=== PATIENT | female | born 1945 | race Two or more races ===

== ENCOUNTER 2019-04-26 04:17 | Emergency (ER) | payer MEDICARE ==
[~2019-04-26] VITALS: Ht 165.1 cm; Wt 81.4 kg
[~2019-04-26 04:17] MED LIST: ASPI-611 PO; DOCU-28 PO; HYDR-4383 PO; LISI10TA4 PO
[2019-04-26] MEDS ORDERED: ipratropium/albuterol 3ml nebule NEB ONE (04:20)
[2019-04-26] MEDS ORDERED: normal saline 1000ML IV soln IVB ONE (04:25)
[2019-04-26] MEDS ORDERED: LIDOcaine Viscous 15ml cup MM PRN (04:25)
[2019-04-26] MEDS ORDERED: HYDROcodone/acetaminophen 5mg/325mg tablet PO ONE (04:25)
[2019-04-26] MEDS ORDERED: methylPREDNISolone sod succ 125mg/2ml vial IV ONE (04:25)
[2019-04-26] MEDS ORDERED: LORazepam 0.5 MG tablet PO PRN (04:55)
[2019-04-26] MEDS ORDERED: PRED50TA PO (05:09)
[2019-04-26] MEDS ORDERED: morphine 4 MG/ML inj SYRINge IM ONE (05:40)
[2019-04-26 05:54] VITALS: BP 143/73
[2019-04-26 07:04] LABS: BASOPHILS # (AUTO) 0.1 X10'3 (0-0.2); EOSINOPHILS % (AUTO) 0.5 % (0-6); HEMATOCRIT 40.3 % (35.0-45.0); HEMOGLOBIN 13.9 g/dl (12.0-16.0); LYMPHOCYTES # (AUTO) 0.8 X10'3 (1.1-4.8); MEAN CORPUSCULAR HEMOGLOBIN 30.9 PG (27.0-31.0); MEAN CORPUSCULAR HGB CONC 34.5 g/dL (33.0-36.5); MEAN CORPUSCULAR VOLUME 89.7 FL (78-98); MEAN PLATELET VOLUME 8.5 FL (7.4-10.4); MONOCYTES # (AUTO) 0.3 X10'3 (0-0.9); MONOCYTES % (AUTO) 4.5 % (2-12); NEUTROPHILS # (AUTO) 6.4 X10'3 (1.8-7.7); PLATELET COUNT 173 X10'3 (140-440); RED BLOOD COUNT 4.49 X10'6 (4.20-5.60); RED CELL DISTRIBUTION WIDTH 13.6 % (11.5-14.5); WHITE BLOOD COUNT 7.6 X10'3 (4.5-11.0)
[2019-04-26 07:23] LABS: ALANINE AMINOTRANSFERASE 20 U/L (12-78); ALBUMIN 3.5 G/DL (3.4-5.0); ALKALINE PHOSPHATASE 298 IU/L (46-116); ANION GAP 10 (8-16); ASPARTATE AMINO TRANSFERASE 16 U/L (10-37); BILIRUBIN,TOTAL 0.3 MG/DL (0.1-1.0); BLOOD UREA NITROGEN 24 MG/DL (7-18); BUN/CREATININE RATIO 25.3 (6.6-38.0); CALCIUM 8.8 MG/DL (8.5-10.1); CHLORIDE 105 MMOL/L (99-107); CREATININE 0.95 MG/DL (0.40-0.90); GLUCOSE 178 MG/DL (70-104); POTASSIUM 3.5 MMOL/L (3.5-5.1); SODIUM 139 MMOL/L (135-145); TOTAL CARBON DIOXIDE 24.1 MMOL/L (24-32); TOTAL PROTEIN 6.9 G/DL (6.4-8.2); eGFR 58 ML/MIN
[2019-04-26] MEDS ORDERED: iohexol 300mg/ml 100ml inj. ONE (07:27)
[2019-04-26] MEDS ORDERED: morphine 4 MG/ML inj SYRINge IV ONE (08:05)
[2019-04-26] MEDS ORDERED: ACET-3068 PO (09:03)
== END 2019-04-26 09:33 | disposition home or self-care (01) ==
LOC: ER 04:18
DX: J02.9 Acute pharyngitis, unspecified (principal); R06.02 Shortness of breath; J45.909 Unspecified asthma, uncomplicated; Z79.82 Long term (current) use of aspirin; Z88.8 Allergy status to other drugs, medicaments and biological substances; Z79.899 Other long term (current) drug therapy; Z90.710 Acquired absence of both cervix and uterus; Z90.49 Acquired absence of other specified parts of digestive tract; Z98.890 Other specified postprocedural states
CPT/HCPCS: 36415; 70491; 80053; 85025; 87081; 87880; 93005; 94640; 94760; 96374; 96375; 96376; 99284; J2270; J2930; J7030; Q9967

== ENCOUNTER 2019-10-17 02:02 | Emergency (ER) | payer MEDICARE ==
[~2019-10-17] VITALS: Ht 165.1 cm; Wt 88.6 kg
[~2019-10-17 02:02] MED LIST changes: +PRED50TA PO
[2019-10-17] MEDS ORDERED: ciprofloxacin lact 400MG/200ML 200 ML IV ONE (02:15)
[2019-10-17] MEDS ORDERED: metroNIDAZOLE-Flagyl 500mg/NS 100 ML IV ONE (02:15)
[2019-10-17] MEDS ORDERED: fentaNYL/PF 50MCG/1 ML 2ML syringe IV ONE (02:20)
[2019-10-17] MEDS ORDERED: ondansetron/PF 4mg/2ml inj IV ONE (02:20)
--- NOTE | 2019-10-17 02:32 | NUR ---
Patient transferred to CT scan at this time by tech.
[2019-10-17 03:07] LABS: CLARITY,URINE CLOUDY (Clear); COLOR,URINE YELLOW (Yellow); GLUCOSE, URINE NEGATIVE (Neg); KETONES,URINE TRACE mg/dl (Neg); LEUKOCYTE ESTERASE ,URINE MODERATE (Neg); NITRITES, URINE NEGATIVE (Neg); OCCULT BLOOD,URINE SMALL (Neg); PROTEIN,URINE 30 mg/dl (Neg); UROBILINOGEN,URINE 0.2 E.U/dL (0.2-1.0)
[2019-10-17 03:10] LABS: BASOPHILS # (AUTO) 0.1 X10'3 (0-0.2); BASOPHILS % (AUTO) 0.6 % (0-1); EOSINOPHILS # (AUTO) 0.2 X10'3 (0-0.9); EOSINOPHILS % (AUTO) 1.9 % (0-6); HEMATOCRIT 43.6 % (35.0-45.0); HEMOGLOBIN 14.8 g/dl (12.0-16.0); LYMPHOCYTES # (AUTO) 2.6 X10'3 (1.1-4.8); LYMPHOCYTES % (AUTO) 22.5 % (21-51); MEAN CORPUSCULAR HEMOGLOBIN 30.7 PG (27.0-31.0); MEAN CORPUSCULAR VOLUME 90.1 FL (78-98); MONOCYTES # (AUTO) 0.9 X10'3 (0-0.9); MONOCYTES % (AUTO) 7.6 % (2-12); NEUTROPHILS # (AUTO) 7.9 X10'3 (1.8-7.7); NEUTROPHILS % (AUTO) 67.4 % (42-75); PLATELET COUNT 252 X10'3 (140-440); RED BLOOD COUNT 4.84 X10'6 (4.20-5.60); RED CELL DISTRIBUTION WIDTH 14.1 % (11.5-14.5); WHITE BLOOD COUNT 11.7 X10'3 (4.5-11.0)
[2019-10-17 03:12] LABS: ALANINE AMINOTRANSFERASE 24 U/L (12-78); ALBUMIN 3.8 G/DL (3.4-5.0); ALKALINE PHOSPHATASE 245 IU/L (46-116); ANION GAP 12 (8-16); ASPARTATE AMINO TRANSFERASE 14 U/L (10-37); BILIRUBIN,TOTAL 0.5 MG/DL (0.1-1.0); BLOOD UREA NITROGEN 20 MG/DL (7-18); BUN/CREATININE RATIO 19.6 (6.6-38.0); CALCIUM 9.5 MG/DL (8.5-10.1); CHLORIDE 106 MMOL/L (99-107); CREATININE 1.02 MG/DL (0.40-0.90); GLUCOSE 137 MG/DL (70-104); LIPASE 68 U/L (73-393); POTASSIUM 3.9 MMOL/L (3.5-5.1); SODIUM 145 MMOL/L (135-145); TOTAL CARBON DIOXIDE 27.4 MMOL/L (24-32); TOTAL PROTEIN 7.7 G/DL (6.4-8.2); eGFR 53 ML/MIN
[2019-10-17 03:17] LABS: UA COLLECTION TYPE VOIDED
[2019-10-17 03:24] LABS: BACTERIA,URINE 3+ /HPF (Neg); MUCUS STRANDS MANY /LPF (Neg); RBC,URINE 0-2 /HPF (0-2); SQUAMOUS EPITHELIAL CELL,UR MANY /LPF (FEW); WBC,URINE 50-100 /HPF (0-4)
[2019-10-17] MEDS ORDERED: ONDA8TAB6 PO (03:38)
[2019-10-17] MEDS ORDERED: HYDR-3965 PO (03:38)
[2019-10-17] MEDS ORDERED: AMOX-422 PO (03:38)
[2019-10-17] MEDS ORDERED: HYDROcodone/acetaminophen 5mg/325mg tablet PO ONE (03:40)
[2019-10-17 04:54] VITALS: BP 105/54
== END 2019-10-17 04:45 | disposition home or self-care (01) ==
LOC: ER 02:03
DX: K57.32 Diverticulitis of large intestine without perforation or abscess without bleeding (principal); R10.31 Right lower quadrant pain; J45.909 Unspecified asthma, uncomplicated; Z90.49 Acquired absence of other specified parts of digestive tract; Z90.710 Acquired absence of both cervix and uterus; Z98.890 Other specified postprocedural states; Z88.5 Allergy status to narcotic agent; Z88.8 Allergy status to other drugs, medicaments and biological substances; Z79.82 Long term (current) use of aspirin; Z79.899 Other long term (current) drug therapy
CPT/HCPCS: 36415; 74176; 80053; 81001; 83690; 85025; 96365; 96366; 96368; 96375; 99284; J0744; J2405; J3010; J3490

== ENCOUNTER 2021-02-06 04:56 | Emergency (ER) | payer MEDICARE ==
[~2021-02-06] VITALS: Ht 167.6 cm; Wt 88.6 kg
[~2021-02-06 04:56] MED LIST changes: +LISI10TA27 PO; -LISI10TA4 PO; +ONDA8TAB6 PO
[2021-02-06] MEDS ORDERED: normal saline 1000ML IV soln IVB ONE (05:15)
[2021-02-06] MEDS ORDERED: morphine 4 MG/ML inj SYRINge IV PRN (05:15)
[2021-02-06] MEDS ORDERED: ondansetron/PF 4mg/2ml inj IV ONE (05:15)
[2021-02-06] MEDS ORDERED: iohexol 300mg/ml 100ml inj. ONE (05:22)
[2021-02-06 05:25] LABS: BASOPHILS # (AUTO) 0.1 X10'3 (0-0.2); EOSINOPHILS # (AUTO) 0.1 X10'3 (0-0.9); EOSINOPHILS % (AUTO) 1.5 % (0-6); HEMATOCRIT 41.1 % (35.0-45.0); HEMOGLOBIN 13.9 g/dl (12.0-16.0); LYMPHOCYTES # (AUTO) 2.2 X10'3 (1.1-4.8); LYMPHOCYTES % (AUTO) 22.1 % (21-51); MEAN CORPUSCULAR HEMOGLOBIN 30.7 PG (27.0-31.0); MEAN CORPUSCULAR VOLUME 90.3 FL (78-98); MEAN PLATELET VOLUME 8.7 FL (7.4-10.4); MONOCYTES # (AUTO) 0.7 X10'3 (0-0.9); MONOCYTES % (AUTO) 7.3 % (2-12); NEUTROPHILS # (AUTO) 6.8 X10'3 (1.8-7.7); NEUTROPHILS % (AUTO) 68.1 % (42-75); PLATELET COUNT 246 X10'3 (140-440); RED BLOOD COUNT 4.55 X10'6 (4.20-5.60); RED CELL DISTRIBUTION WIDTH 14.1 % (11.5-14.5)
[2021-02-06 05:37] LABS: ALANINE AMINOTRANSFERASE 18 U/L (12-78); ALBUMIN 3.6 G/DL (3.4-5.0); ALKALINE PHOSPHATASE 294 IU/L (46-116); ANION GAP 7 (8-16); ASPARTATE AMINO TRANSFERASE 12 U/L (10-37); BILIRUBIN,TOTAL 0.6 MG/DL (0.1-1.0); BLOOD UREA NITROGEN 17 MG/DL (7-18); BUN/CREATININE RATIO 18.1 (6.6-38.0); CHLORIDE 105 MMOL/L (99-107); CREATININE 0.94 MG/DL (0.40-0.90); GLUCOSE 132 MG/DL (70-104); LIPASE 58 U/L (73-393); POTASSIUM 3.7 MMOL/L (3.5-5.1); SODIUM 140 MMOL/L (135-145); TOTAL CARBON DIOXIDE 27.6 MMOL/L (24-32); TOTAL PROTEIN 7.3 G/DL (6.4-8.2); eGFR 58 ML/MIN
[2021-02-06 05:53] LABS: COLOR,URINE YELLOW (Yellow); GLUCOSE, URINE NEGATIVE (Neg); KETONES,URINE NEGATIVE (Neg); LEUKOCYTE ESTERASE ,URINE MODERATE (Neg); NITRITES, URINE NEGATIVE (Neg); OCCULT BLOOD,URINE NEGATIVE (Neg); PROTEIN,URINE NEGATIVE (Neg); UA COLLECTION TYPE CLN CATCH MIDSTREAM; UROBILINOGEN,URINE 0.2 E.U/dL (0.2-1.0)
[2021-02-06 05:54] LABS: CLARITY,URINE SLIGHTLY CLOUDY (Clear)
[2021-02-06 05:55] LABS: BACTERIA,URINE FEW /HPF (Neg); RBC,URINE NONE SEEN /HPF (0-2); RENAL CELLS, URINE FEW /HPF; SQUAMOUS EPITHELIAL CELL,UR MODERATE /LPF (FEW); WBC,URINE 20-30 /HPF (0-4)
[2021-02-06] MEDS ORDERED: CIPR-259 PO (06:45)
[2021-02-06] MEDS ORDERED: METR500T PO (06:45)
[2021-02-06 06:52] VITALS: BP 128/74
== END 2021-02-06 07:13 | disposition home or self-care (01) ==
LOC: ER 04:56
DX: R10.32 Left lower quadrant pain (principal); K57.32 Diverticulitis of large intestine without perforation or abscess without bleeding; R11.0 Nausea; J45.909 Unspecified asthma, uncomplicated; Z90.89 Acquired absence of other organs; Z90.710 Acquired absence of both cervix and uterus; Z98.890 Other specified postprocedural states; Z88.5 Allergy status to narcotic agent; Z88.8 Allergy status to other drugs, medicaments and biological substances; Z79.82 Long term (current) use of aspirin; Z79.2 Long term (current) use of antibiotics; Z79.899 Other long term (current) drug therapy
CPT/HCPCS: 36415; 74177; 80053; 81001; 83690; 85025; 87088; 96361; 96374; 96375; 99285; J2270; J2405; J7030; Q9967

== ENCOUNTER 2021-07-29 18:53 | Emergency (ER) | payer MEDICARE ==
[~2021-07-29] VITALS: Ht 165.1 cm; Wt 85.5 kg
[2021-07-29 19:16] VITALS: BP 170/103
[2021-07-29 20:29] LABS: BASOPHILS % (AUTO) 0.4 % (0-1); EOSINOPHILS # (AUTO) 0.2 X10'3 (0-0.9); HEMATOCRIT 42.7 % (35.0-45.0); HEMOGLOBIN 14.6 g/dl (12.0-16.0); LYMPHOCYTES # (AUTO) 1.4 X10'3 (1.1-4.8); LYMPHOCYTES % (AUTO) 16.4 % (21-51); MEAN CORPUSCULAR HEMOGLOBIN 30.8 PG (27.0-31.0); MEAN CORPUSCULAR HGB CONC 34.2 g/dL (33.0-36.5); MEAN CORPUSCULAR VOLUME 90.3 FL (78-98); MEAN PLATELET VOLUME 8.4 FL (7.4-10.4); MONOCYTES # (AUTO) 0.8 X10'3 (0-0.9); MONOCYTES % (AUTO) 9.5 % (2-12); NEUTROPHILS % (AUTO) 71.7 % (42-75); PLATELET COUNT 214 X10'3 (140-440); RED BLOOD COUNT 4.73 X10'6 (4.20-5.60); RED CELL DISTRIBUTION WIDTH 13.5 % (11.5-14.5); WHITE BLOOD COUNT 8.4 X10'3 (4.5-11.0)
[2021-07-29 20:42] LABS: CLARITY,URINE CLOUDY (Clear); COLOR,URINE YELLOW (Yellow); GLUCOSE, URINE NEGATIVE (Neg); KETONES,URINE NEGATIVE (Neg); NITRITES, URINE NEGATIVE (Neg); OCCULT BLOOD,URINE SMALL (Neg); PH,URINE 6.5 (4.8-8.0); PROTEIN,URINE TRACE mg/dl (Neg); UA COLLECTION TYPE CLN CATCH MIDSTREAM
[2021-07-29 20:43] LABS: LEUKOCYTE ESTERASE ,URINE SMALL (Neg); UROBILINOGEN,URINE 0.2 E.U/dL (0.2-1.0)
[2021-07-29 20:49] LABS: ALANINE AMINOTRANSFERASE 23 U/L (12-78); ALBUMIN 3.4 G/DL (3.4-5.0); ALBUMIN/GLOBULIN RATIO 0.8 (1.1-1.5); ALKALINE PHOSPHATASE 207 IU/L (46-116); ANION GAP 13 (8-16); ASPARTATE AMINO TRANSFERASE 18 U/L (10-37); BILIRUBIN,TOTAL 0.6 MG/DL (0.1-1.0); BLOOD UREA NITROGEN 13 MG/DL (7-18); BUN/CREATININE RATIO 13.5 (6.6-38.0); CHLORIDE 101 MMOL/L (99-107); CREATININE 0.96 MG/DL (0.40-0.90); GLUCOSE 143 MG/DL (70-104); LIPASE < 50 U/L (73-393); POTASSIUM 3.3 MMOL/L (3.5-5.1); SODIUM 138 MMOL/L (135-145); TOTAL CARBON DIOXIDE 24.5 MMOL/L (24-32); TOTAL PROTEIN 7.6 G/DL (6.4-8.2); eGFR 57 ML/MIN
[2021-07-29 21:08] LABS: RENAL CELLS, URINE FEW /HPF; SQUAMOUS EPITHELIAL CELL,UR MANY /LPF (FEW); WBC CLUMPS,URINE FEW /HPF (NEGATIVE)
[2021-07-29 21:09] LABS: BACTERIA,URINE 1+ /HPF (Neg); MUCUS STRANDS NONE SEEN /LPF (Neg)
[2021-07-29] MEDS ORDERED: amox tr/potassium clavulanate 875/125mg TAB PO ONE (21:35)
[2021-07-29] MEDS ORDERED: metroNIDAZOLE 500mg tablet PO ONE (21:35)
[2021-07-29] MEDS ORDERED: AMOX-117 PO (21:35)
[2021-07-29] MEDS ORDERED: METR-159 PO (21:35)
== END 2021-07-29 22:00 | disposition home or self-care (01) ==
LOC: ER 18:53
DX: K57.92 Diverticulitis of intestine, part unspecified, without perforation or abscess without bleeding (principal); Z20.828 Contact with and (suspected) exposure to other viral communicable diseases; N39.0 Urinary tract infection, site not specified; J45.909 Unspecified asthma, uncomplicated; Z90.49 Acquired absence of other specified parts of digestive tract; Z90.710 Acquired absence of both cervix and uterus; Z88.8 Allergy status to other drugs, medicaments and biological substances; Z79.2 Long term (current) use of antibiotics; Z79.82 Long term (current) use of aspirin; Z79.899 Other long term (current) drug therapy
CPT/HCPCS: 36415; 74176; 80053; 81001; 83690; 85025; 87635; 99284; C9803; J3490

== ENCOUNTER 2023-03-26 03:59 | Emergency (ER) | payer MEDICARE ==
[~2023-03-26] VITALS: Ht 165.1 cm; Wt 95.5 kg
[2023-03-26 04:05] VITALS: BP 135/78
[2023-03-26] MEDS ORDERED: ibuprofen tablet 400 MG TABLET PO ONE (04:20)
--- NOTE | 2023-03-26 07:42 | NUR ---
RADIOLOGY GROUP CALLED WITH READ ON XRAY LLL. SPIRAL FX OF L DISTAL FIBULA. PT HAS BEEN DISCHARGED, DR GILBERT NOTIFIED
== END 2023-03-26 05:45 | disposition home or self-care (01) ==
LOC: ER 04:00
DX: S82.832A Other fracture of upper and lower end of left fibula, initial encounter for closed fracture (principal); I10 Essential (primary) hypertension; J45.909 Unspecified asthma, uncomplicated; Z88.5 Allergy status to narcotic agent; Z88.8 Allergy status to other drugs, medicaments and biological substances; E78.00 Pure hypercholesterolemia, unspecified; Z98.890 Other specified postprocedural states; Z90.710 Acquired absence of both cervix and uterus; W01.0XXA Fall on same level from slipping, tripping and stumbling without subsequent striking against object, initial encounter; Y93.89 Activity, other specified; Y92.89 Other specified places as the place of occurrence of the external cause; Y99.8 Other external cause status
CPT/HCPCS: 73610; 99284

== ENCOUNTER 2024-12-25 19:58 | Inpatient (IN) | payer MEDICARE, OTHER ==
[~2024-12-25] VITALS: Ht 177.8 cm; Wt 77.5 kg
[2024-12-25 20:39] LABS: BASOPHILS # (AUTO) 0.1 X10'3 (0-0.2); BASOPHILS % (AUTO) 1.4 % (0-1); EOSINOPHILS # (AUTO) 0.3 X10'3 (0-0.9); HEMATOCRIT 42.8 % (35.0-45.0); HEMOGLOBIN 14.3 g/dl (12.0-16.0); LYMPHOCYTES # (AUTO) 3.3 X10'3 (1.1-4.8); LYMPHOCYTES % (AUTO) 37.3 % (21-51); MEAN CORPUSCULAR HEMOGLOBIN 30.2 PG (27.0-31.0); MEAN CORPUSCULAR HGB CONC 33.5 g/dL (33.0-36.5); MEAN CORPUSCULAR VOLUME 90.3 FL (78-98); MEAN PLATELET VOLUME 8.4 FL (7.4-10.4); MONOCYTES # (AUTO) 0.7 X10'3 (0-0.9); MONOCYTES % (AUTO) 7.4 % (2-12); NEUTROPHILS # (AUTO) 4.6 X10'3 (1.8-7.7); NEUTROPHILS % (AUTO) 50.9 % (42-75); PLATELET COUNT 230 X10'3 (140-440); RED BLOOD COUNT 4.74 X10'6 (4.20-5.60); RED CELL DISTRIBUTION WIDTH 14.1 % (11.5-14.5)
[2024-12-25 20:56] LABS: ALANINE AMINOTRANSFERASE 22 U/L (12-78); ALBUMIN/GLOBULIN RATIO 1.1 (1.1-1.5); ALKALINE PHOSPHATASE 416 IU/L (46-116); ANION GAP 8 (8-16); ASPARTATE AMINO TRANSFERASE 16 U/L (10-37); BILIRUBIN,TOTAL 0.5 MG/DL (0.1-1.0); BLOOD UREA NITROGEN 20 MG/DL (7-18); CALCIUM 9.1 MG/DL (8.5-10.1); CHLORIDE 106 MMOL/L (99-107); CREATININE 0.77 MG/DL (0.40-0.90); GLUCOSE 159 MG/DL (70-104); POTASSIUM 3.6 MMOL/L (3.5-5.1); SODIUM 140 MMOL/L (135-145); TOTAL CARBON DIOXIDE 26.5 MMOL/L (24-32); TOTAL PROTEIN 7.8 G/DL (6.4-8.2); eCRCL 64 ML/MIN; eGFR 72 ML/MIN
[2024-12-25 21:04] LABS: PRO BRAIN NATRIURETIC PEPTIDE 67 PG/ML (0-450)
[2024-12-25] MEDS: hydrALAZINE 20mg/ml inj. IV ONE (21:52)
[2024-12-25] MEDS: amLODIPine 5mg tablet PO ONE (22:20)
[2024-12-25] MEDS: aspirin 325mg tablet PO ONE (23:27)
[2024-12-26] VITALS (8 sets, daily range): BP systolic 153–175; BP diastolic 64–79; PULSE 60–83; RESP 13–16; TEMP 97.8; O2SAT 95–100
[2024-12-26] MEDS ORDERED: magnesium sulf-water 4G/100mL 100 ML IV PRN
[2024-12-26] MEDS ORDERED: potassium Cl 20 mEq SR tablet PO PRN
[2024-12-26] MEDS ORDERED: magnesium Cl slow-release 64mg tablet PO PRN
[2024-12-26] MEDS ORDERED: magnesium sulf-water 2g/50mL 50 ML IV PRN
[2024-12-26] MEDS ORDERED: ondansetron/PF 4mg/2ml inj IV PRN
[2024-12-26] MEDS ORDERED: acetaminophen 325mg tablet PO PRN
[2024-12-26] MEDS ORDERED: morphine 2 MG/ML inj. syringe IV PRN ×2
[2024-12-26] MEDS ORDERED: potassium Cl 40MEQ/1/2NS 520ml 520 ML IV PRN
[2024-12-26] MEDS ORDERED: magnesium hydroxide 30ml (MOM) UD suspension PO PRN
[2024-12-26] MEDS ORDERED: mag hydrox/Alum hydrox/simeth 30ml oral suspension PO PRN
[2024-12-26 02:31] LABS: BILIRUBIN,URINE NEGATIVE (Neg); CLARITY,URINE CLEAR (Clear); COLOR,URINE YELLOW (Yellow); GLUCOSE, URINE NEGATIVE (Neg); KETONES,URINE TRACE mg/dl (Neg); LEUKOCYTE ESTERASE ,URINE SMALL (Neg); NITRITES, URINE NEGATIVE (Neg); OCCULT BLOOD,URINE NEGATIVE (Neg); PROTEIN,URINE NEGATIVE (Neg); UROBILINOGEN,URINE 0.2 E.U/dL (0.2-1.0)
[2024-12-26 02:36] LABS: UA COLLECTION TYPE CLN CATCH MIDSTREAM
[2024-12-26 02:37] LABS: BACTERIA,URINE 1+ /HPF (Neg); RBC,URINE NONE SEEN /HPF (0-2); SQUAMOUS EPITHELIAL CELL,UR MODERATE /LPF (FEW)
[2024-12-26] MEDS: Melatonin 3mg tablet PO ONE (02:45)
[2024-12-26] MEDS ORDERED: PRAV10TA39 PO (02:54)
[2024-12-26] MEDS ORDERED: AMLO2.5T5 PO (02:54)
[2024-12-26] MEDS ORDERED: LISI20TA28 PO (02:54)
[2024-12-26 04:26] LABS: BASOPHILS # (AUTO) 0.1 X10'3 (0-0.2); EOSINOPHILS # (AUTO) 0.2 X10'3 (0-0.9); EOSINOPHILS % (AUTO) 2.6 % (0-6); LYMPHOCYTES # (AUTO) 2.9 X10'3 (1.1-4.8); LYMPHOCYTES % (AUTO) 30.2 % (21-51); MEAN CORPUSCULAR HEMOGLOBIN 30.1 PG (27.0-31.0); MEAN CORPUSCULAR HGB CONC 33.3 g/dL (33.0-36.5); MEAN CORPUSCULAR VOLUME 90.4 FL (78-98); MEAN PLATELET VOLUME 8.7 FL (7.4-10.4); MONOCYTES # (AUTO) 0.8 X10'3 (0-0.9); MONOCYTES % (AUTO) 7.8 % (2-12); NEUTROPHILS # (AUTO) 5.7 X10'3 (1.8-7.7); NEUTROPHILS % (AUTO) 58.4 % (42-75); PLATELET COUNT 226 X10'3 (140-440); RED BLOOD COUNT 4.65 X10'6 (4.20-5.60); RED CELL DISTRIBUTION WIDTH 14.1 % (11.5-14.5); WHITE BLOOD COUNT 9.7 X10'3 (4.5-11.0)
[2024-12-26] MEDS ORDERED: aminophylline 250mg/10ml inj. IV PRN (04:30)
[2024-12-26] MEDS ORDERED: nitroGLYCERIN 0.4mg SUBLingual tab SL PRN (04:30)
[2024-12-26] MEDS ORDERED: metoprolol tartrate 1mg/ml inj IV PRN (04:30)
[2024-12-26 04:41] LABS: ALANINE AMINOTRANSFERASE 17 U/L (12-78); ALBUMIN 3.6 G/DL (3.4-5.0); ALKALINE PHOSPHATASE 337 IU/L (46-116); ANION GAP 9 (8-16); ASPARTATE AMINO TRANSFERASE 14 U/L (10-37); BILIRUBIN,TOTAL 0.6 MG/DL (0.1-1.0); BLOOD UREA NITROGEN 18 MG/DL (7-18); BUN/CREATININE RATIO 25.7 (10.0-20.0); CALCIUM 9.1 MG/DL (8.5-10.1); CHLORIDE 107 MMOL/L (99-107); CHOL/HDL RATIO 1.6 (0.00-4.99); CHOLESTEROL 157 MG/DL (0-200); GLUCOSE 143 MG/DL (70-104); HDL CHOLESTEROL 98 MG/DL (35-60); LDL CHOLESTEROL 48 MG/DL (50-100); POTASSIUM 3.4 MMOL/L (3.5-5.1); SODIUM 142 MMOL/L (135-145); TOTAL CARBON DIOXIDE 26.3 MMOL/L (24-32); TOTAL PROTEIN 7.1 G/DL (6.4-8.2); TRIGLYCERIDES 41 MG/DL (20-135); eCRCL 70 ML/MIN; eGFR 81 ML/MIN
[2024-12-26] MEDS ORDERED: iohexol 350MG/ML 100ml bottle IV ONE (04:42)
[2024-12-26 04:43] LABS: HEMOGLOBIN A1C 6.7 % (4.5-6.2)
[2024-12-26] MEDS: K and/or MAG REPLACEMENT MC SCH (08:32)
[2024-12-26] MEDS: docusate sod 100mg capsule PO SCH (08:33)
[2024-12-26] MEDS: potassium Cl 20 mEq SR tablet PO PRN (08:34)
[2024-12-26] MEDS: heparin, porcine 5000 units/ml vial SQ SCH (08:34)
[2024-12-26] MEDS ORDERED: aminophylline 500mg/20ml vial IV PRN (10:58)
[2024-12-26] MEDS: regadenoson 0.4mg/5ml syringe IV PRN (11:28)
[2024-12-26] MEDS ORDERED: Melatonin 3mg tablet PO SCH (21:00)
== END 2024-12-26 17:55 | disposition home or self-care (01) | DRG 305 ==
LOC: ER 19:59 → ED HOLD 23:20 → EDBEDREQ 12-26 15:38 → PCU 3S 12-26 16:15
PROVIDERS: ADMIT Internal Medicine; ATTEND Internal Medicine
PROC: 4A02XM4 Measurement of Cardiac Total Activity, External Approach (ICD-10-PCS; principal; 2024-12-26)
PROC: 3E033HZ Introduction of Radioactive Substance into Peripheral Vein, Percutaneous Approach (ICD-10-PCS; 2024-12-26)
PROC: B32T1ZZ Computerized Tomography (CT Scan) of Left Pulmonary Artery using Low Osmolar Contrast (ICD-10-PCS; 2024-12-26)
PROC: B3201ZZ Computerized Tomography (CT Scan) of Thoracic Aorta using Low Osmolar Contrast (ICD-10-PCS; 2024-12-26)
PROC: B32S1ZZ Computerized Tomography (CT Scan) of Right Pulmonary Artery using Low Osmolar Contrast (ICD-10-PCS; 2024-12-26)
PROC: B4201ZZ Computerized Tomography (CT Scan) of Abdominal Aorta using Low Osmolar Contrast (ICD-10-PCS; 2024-12-26)
PROC: B4241ZZ Computerized Tomography (CT Scan) of Superior Mesenteric Artery using Low Osmolar Contrast (ICD-10-PCS; 2024-12-26)
PROC: B4281ZZ Computerized Tomography (CT Scan) of Bilateral Renal Arteries using Low Osmolar Contrast (ICD-10-PCS; 2024-12-26)
PROC: B42C1ZZ Computerized Tomography (CT Scan) of Pelvic Arteries using Low Osmolar Contrast (ICD-10-PCS; 2024-12-26)
PROC: B4211ZZ Computerized Tomography (CT Scan) of Celiac Artery using Low Osmolar Contrast (ICD-10-PCS; 2024-12-26)
DX: I16.1 Hypertensive emergency (principal); I67.4 Hypertensive encephalopathy; I24.9 Acute ischemic heart disease, unspecified; I10 Essential (primary) hypertension; E11.9 Type 2 diabetes mellitus without complications; E78.00 Pure hypercholesterolemia, unspecified; I34.0 Nonrheumatic mitral (valve) insufficiency; J45.909 Unspecified asthma, uncomplicated; Z93.3 Colostomy status; Z90.49 Acquired absence of other specified parts of digestive tract; Z90.710 Acquired absence of both cervix and uterus; Z88.5 Allergy status to narcotic agent; Z88.8 Allergy status to other drugs, medicaments and biological substances; Z79.82 Long term (current) use of aspirin; Z79.899 Other long term (current) drug therapy; Z85.41 Personal history of malignant neoplasm of cervix uteri
CPT/HCPCS: 36415; 71045; 71275; 74174; 78452; 80053; 80061; 81001; 82977; 83036; 83735; 83880; 84484; 85025; 87088; 93005; 93017; 96374; 99285; A9500; C1751; G0378; J0360; J1644; J2785; Q9967

== ENCOUNTER 2025-04-06 05:39 | Emergency (ER) | payer MEDICARE, OTHER ==
[~2025-04-06] VITALS: Ht 165.1 cm; Wt 93.0 kg
[~2025-04-06 05:39] MED LIST changes: +AMLO2.5T5 PO; +LISI20TA28 PO; +PRAV10TA39 PO
--- NOTE | 2025-04-06 06:33 | RADIOLOGY REPORT ---
EXAM: CT Head Without Intravenous Contrast CLINICAL INDICATION: WORST HEADACHE OF HER LIFE TECHNIQUE: Axial computed tomography images of the head/brain without intravenous contrast. This CT exam was performed using one or more of the following dose reduction techniques: automated exposure control, adjustment of the mA and/or kV according to patient size, and/or use of iterative reconstru ction technique. CONTRAST: COMPARISON: No relevant prior studies available. FINDINGS: BRAIN AND EXTRA-AXIAL SPACES: No acute intracranial hemorrhage, midline shift or mass effect. If sy mptoms persist, further evaluation with MRI is recommended. No significant white matter disease. BONES/JOINTS: Unremarkable. No acute fracture. SOFT TISSUES: Unremarkable. SINUSES: Unremarkable as visualized. No acute sinusitis. MASTOID AIR CELLS: Unremarkable as visualized. No mastoid effusion. OTHER FINDINGS: Comparison None. . IMPRESSION: No acute intracranial hemorrhage, midline shift or mass effect. If symptoms persist, further evaluat ion with MRI is recommended. HS:Y
[2025-04-06 07:01] LABS: BASOPHILS # (AUTO) 0.1 X10'3 (0-0.2); BASOPHILS % (AUTO) 1.2 % (0-1); EOSINOPHILS # (AUTO) 0.2 X10'3 (0-0.9); EOSINOPHILS % (AUTO) 2.8 % (0-6); HEMATOCRIT 42.6 % (35.0-45.0); LYMPHOCYTES # (AUTO) 2.1 X10'3 (1.1-4.8); LYMPHOCYTES % (AUTO) 32.6 % (21-51); MEAN CORPUSCULAR HEMOGLOBIN 29.2 PG (27.0-31.0); MEAN CORPUSCULAR HGB CONC 32.9 g/dL (33.0-36.5); MEAN CORPUSCULAR VOLUME 88.8 FL (78-98); MEAN PLATELET VOLUME 8.5 FL (7.4-10.4); MONOCYTES # (AUTO) 0.5 X10'3 (0-0.9); MONOCYTES % (AUTO) 7.6 % (2-12); NEUTROPHILS # (AUTO) 3.6 X10'3 (1.8-7.7); NEUTROPHILS % (AUTO) 55.8 % (42-75); PLATELET COUNT 249 X10'3 (140-440); RED BLOOD COUNT 4.79 X10'6 (4.20-5.60); RED CELL DISTRIBUTION WIDTH 14.2 % (11.5-14.5); WHITE BLOOD COUNT 6.5 X10'3 (4.5-11.0)
[2025-04-06 07:14] LABS: ALBUMIN 3.9 G/DL (3.4-5.0); ANION GAP 12 (8-16); BLOOD UREA NITROGEN 24 MG/DL (7-18); BUN/CREATININE RATIO 24.2 (10.0-20.0); C-REACTIVE PROTEIN 0.34 MG/DL (0.0-0.5); CALCIUM 9.4 MG/DL (8.5-10.1); CHLORIDE 104 MMOL/L (99-107); CREATININE 0.99 MG/DL (0.40-0.90); GLUCOSE 166 MG/DL (70-104); MAGNESIUM 2.2 MG/DL (1.5-2.4); POTASSIUM 3.6 MMOL/L (3.5-5.1); SODIUM 140 MMOL/L (135-145); eGFR 54 ML/MIN
--- NOTE | 2025-04-06 07:20 | ELECTROCARDIOGRAPH REPORT ---
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
[2025-04-06 07:36] VITALS: TEMP 97.6
--- NOTE | 2025-04-06 07:39 | Physician Documentation ---
History of Present Illness ~ Chief Complaint: Headache Stated Complaint: BLOODY NOSE/HEADACHE Time Seen by MD: 06:02 Primary Medical Doctor: ravi alegre Mode of Arrival: POV, Ambulatory HPI 79-year-old female presenting with a headache. The patient states that she woke up this morning with a significant headache. The headache is located on the left side of her head towards the side. Additionally she had a bloody nose. Patient reports that she does not usually get headaches and this is unusual for her. The headache has eased up now. She rates that initially was about a 6/10 and now has decreased to about a 2/10. Her bloody nose was easily controlled by applying some pressure and this has now resolve. Patient also states that she was slightly lightheaded at the time and that her vision was slightly blurry but denies any numbness, tingling, weakness nausea, vomiting, chest pain, shortness of breath or any other associated symptoms. Patient does have a history of high blood pressure for which she is on medication for. Medication Reconciliation Allergies: Coded Allergies: codeine (Verified Allergy, Unknown, nauseated, 12/25/24) prochlorperazine edisylate (Verified Allergy, Unknown, throat closes/tongue swells, 12/25/24) prochlorperazine maleate (Verified Allergy, Unknown, 12/25/24) promethazine (Verified Allergy, Unknown, 12/25/24) Scheduled Amlodipine Besylate (Amlodipine Besylate), 1 TAB PO DAILY, (Reported) Aspirin (Aspir 81), 1 TAB PO DAILY, (Reported) Docusate Sodium (Colace), 1 CAP PO Q12H Hydrocodone/Acetaminophen ([place] 5-325 Tablet), 1-2 TAB PO Q4HPRN Lisinopril (Lisinopril), 10 MG PO DAILY, (Reported) Lisinopril (Lisinopril), 1 TAB PO DAILY, (Reported) Ondansetron Hcl (Zofran), 1 TAB PO Q8H Pravastatin Sodium (Pravastatin Sodium), 1 TAB PO DAILY, (Reported) Prednisone (Prednisone), 1 TAB PO DAILY Past Medical History Past Medical History: High Cholesterol, Hypertension, Asthma, Diverticulitis, Diverticulosis Past Surgical History: appendectomy, hysterectomy, orthopedic surgeries, other Smoking Status: Never smoker Alcohol Use: None Drug Use: none Lives with: Spouse Lives In: Home Review of Systems All Other Systems at this time: Reviewed and Negative Physical Exam Vital Signs: Temperature: 97.6, Heart Rate: 72, Respiratory Rate: 16, BP: 134/69, Pulse Oximetry: 97 Oxygen Flow Rate: 0 Physical Exam I have reviewed the triage vitals. CONST: Well developed and well nourished. In no acute distress HENT: Head Atraumatic EYES: Pupils are equal, round and reactive to light. Normal conjunctiva NECK: Normal range of motion. Supple. CARDIO: Normal rate and regular rhythm. No murmurs, rubs, or gallops. S1, S2. PULM/CHEST: No respiratory distress. Lungs clear to auscultation. No wheeze ABD: Soft and nontender. Nondistended. Bowel sounds normal. No guarding. : Exam deferred MSK: No edema. No deformity. NEURO: Alert and oriented to person, place and time. Moving all extremities. Normal strength and sensation bilaterally. Cranial nerves 2-12 are normal. Normal gait, normal coordination. SKIN: Warm and dry. PSYCH: Normal mood and affect. Good eye contact. Progress Results/Orders Results/Orders Orders - PELON GRANT MD Cta Neck/Head (04/06/25 07:41) Chest,Single View (04/06/25 ) Cult Urine + [place] [address] (04/06/25 09:49) Completed Orders - PELON GRANT MD Cbc/Diff (04/06/25 06:02) MG (04/06/25 06:02) C-Reactive Protein (04/06/25 06:02) ESR (04/06/25 06:02) Electrocardiogram (04/06/25 06:02) BMP (04/06/25 06:02) Hs Troponin I W Calculations (04/06/25 06:02) Hs Troponin I W Calculations (04/06/25 07:39) Aspirin 325mg Enteric-Coated (Ecotrin 32 (04/06/25 07:40) Acetaminophen 325mg Tablet (Tylenol Tabl (04/06/25 07:40) Normal Saline 1000ml (Sodium Chloride 10 (04/06/25 07:45) Cta Neck/Head (04/06/25 07:41) Chest,Single View (04/06/25 ) Iohexol 350mg/Ml 100ml (Omnipaque 350mg/ (04/06/25 08:42) Ua W/Microscopic, Cult If Ind (04/06/25 08:50) Diphenhydramine Inj (Benadryl Inj.) (04/06/25 09:40) Medications Received in ER Medications (Trade) Dose Ordered Sig/Elisa Route PRN Reason Start Time Stop Time Status Last Admin Dose Admin (Ecotrin 325MG tablet) 1 tab ONCE ONCE PO 04/06/25 07:40 04/06/25 07:47 DC 04/06/25 08:06 1 TAB (Tylenol tablet) 975 mg ONCE ONCE PO 04/06/25 07:40 04/06/25 07:48 DC 04/06/25 08:06 975 MG Sodium Chloride 1,000 ml @ 1,000 mls/hr ONCE ONCE IV 04/06/25 07:45 04/06/25 08:44 DC 04/06/25 08:05 1,000 MLS/HR (Benadryl inj.) 25 mg ONCE ONCE IV 04/06/25 09:40 04/06/25 09:41 DC 04/06/25 09:44 25 MG Vital Signs 04/06/25 04/06/25 04/06/25 05:42 07:26 07:36 Temp 97.6 97.6 Pulse 72 53 Resp 16 16 16 B/P (MAP) 134/69 142/75 (97) Pulse Ox 97 100 O2 Flow Rate 0 0 Laboratory Tests Test 04/06/25 06:42 04/06/25 07:51 04/06/25 08:50 White Blood Count 6.5 Red Blood Count 4.79 Hemoglobin 14.0 Hematocrit 42.6 Mean Corpuscular Volume 88.8 Mean Corpuscular Hemoglobin 29.2 Mean Corpuscular Hemoglobin Concent 32.9 L Red Cell Distribution Width 14.2 Platelet Count 249 Mean Platelet Volume 8.5 Neutrophils (%) (Auto) 55.8 Lymphocytes (%) (Auto) 32.6 Monocytes (%) (Auto) 7.6 Eosinophils (%) (Auto) 2.8 Basophils (%) (Auto) 1.2 H Neutrophils # (Auto) 3.6 Lymphocytes # (Auto) 2.1 Monocytes # (Auto) 0.5 Eosinophils # (Auto) 0.2 Basophils # (Auto) 0.1 CBC Comment Erythrocyte Sedimentation Rate 9 Sodium Level 140 Potassium Level 3.6 Chloride Level 104 Carbon Dioxide Level 24.0 Anion Gap 12 Blood Urea Nitrogen 24 H Creatinine 0.99 H Estimated GFR/1.73 m2 54 BUN/Creatinine Ratio 24.2 H Glucose Level 166 H Calcium Level 9.4 Magnesium Level 2.2 Troponin I High Sensitivity 51 *H 48 C-Reactive Protein 0.34 Albumin 3.9 Chemistry Comments Troponin I High Sens Percent Delta 5 Troponin I Hi Sens Absolute Change -3 Urine Specimen Description Cln catch midstream Urine Color Yellow Urine Clarity Slightly cloudy Urine pH 6.0 Urine Specific [place] 1.020 Urine Protein Negative Urine Glucose (UA) Negative Urine Ketones Negative Urine Occult Blood Negative Urine Nitrite Negative Urine Bilirubin Negative Urine Urobilinogen 0.2 Urine Leukocyte Esterase Trace H Urine RBC 3-10 Urine WBC 5-10 H Urine WBC Clumps Few Urine Squamous Epithelial Cells Moderate Urine Transitional Epithelial Cells Moderate Urine Renal Cells Few Urine Bacteria Few Urine Culture Indicated Indicated Volume Urine Centrifuged 10 ml Urine Comment Microbiology Date/Time Source Procedure Growth Status 04/06/25 09:49 Urine Clean Catch Midstream Urine Culture - Preliminary Culture received. Resulted EKG/XRAY/CT/US/VASC/MRI EKG : Additional Comment EKG as interpreted by ED MD shows normal sinus rhythm at a rate of 60 beats per minute, no ischemia, normal axis Chest X-Ray : Additional Comments EXAM: DI CHEST,SINGLE VIEW Indication: headache Technique: Single frontal view of the chest was obtained Comparison: DI CHEST,SINGLE VIEW on DOS: 12/25/24 FINDINGS: Lines and Tubes: None Lungs: No focal consolidation. Pleura: No effusion. No pneumothorax. Cardiomediastinal contours: Unremarkable Bones: No acute osseous abnormality. IMPRESSION: No acute cardiopulmonary disease. : Impression Procedure: CT CTA NECK/HEAD HISTORY: Headache/dizziness- r/o CVA or aneurysm Comparison Study: None Exam Date:04/06/2025 09:03 AM TECHNIQUE: CTA head without and with intravenous contrast. CTA neck with intravenous contrast. 3D image postprocessing was performed and images were used for interpretation and reporting. Radiation Dose : CT Dose: CTDI volume is 15 mGy. Dose-length product is 599 mGy*cm FINDINGS: CTA head: There is normal enhancement of the visualized distal internal carotid, anterior and middle cerebral arteries. There is a normal anterior communicating artery complex. There are bilateral posterior communicating arteries. The vertebral, basilar, cerebellar and posterior cerebral arteries are within normal limits. The early parenchymal enhancement is grossly unremarkable. The visualized intracranial venous structures are grossly unremarkable. CTA neck: The visualized thoracic aortic arch and proximal great vessels are unremarkable. The left common, internal and external carotid arteries are within normal limits. The right common, internal and external carotid arteries are within normal limits. The cervical segments of the right and left vertebral arteries are within normal limits. The limited visualized lung apices are clear. The surrounding soft tissues and osseous structures are otherwise unremarkable. IMPRESSION: 1. No evidence of hemodynamically significant intracranial stenosis, proximal occlusion or aneurysm. 2. No evidence of hemodynamically significant cervical stenosis or dissection. EXAM: CT Head Without Intravenous Contrast CLINICAL INDICATION: WORST HEADACHE OF HER LIFE TECHNIQUE: Axial computed tomography images of the head/brain without intravenous contrast. This CT exam was performed using one or more of the following dose reduction techniques: automated exposure control, adjustment of the mA and/or kV according to patient size, and/or use of iterative reconstruction technique. CONTRAST: COMPARISON: No relevant prior studies available. FINDINGS: BRAIN AND EXTRA-AXIAL SPACES: No acute intracranial hemorrhage, midline shift or mass effect. If symptoms persist, further evaluation with MRI is recommended. No significant white matter disease. BONES/JOINTS: Unremarkable. No acute fracture. SOFT TISSUES: Unremarkable. SINUSES: Unremarkable as visualized. No acute sinusitis. MASTOID AIR CELLS: Unremarkable as visualized. No mastoid effusion. OTHER FINDINGS: Comparison None. . IMPRESSION: No acute intracranial hemorrhage, midline shift or mass effect. If symptoms persist, further evaluation with MRI is recommended. HS:Y Medical Decision Making Additional Comment 79-year-old female presenting with a nonspecific headache. Her lab workup was grossly unremarkable. Her initial high sensitivity troponin troponin was borderline elevated however repeat was completely normal. This may have just been due to some stress reaction and increased heart rate from the patient being in hospital. Patient was not having any chest pain at any time. EKGs normal. Patient's head CT noncontrast and CTA head and neck were both negative. The patient did have one episode of shaking after she received contrast but I believe this was a reaction to the contrast. This resolved after being giving a L of IV normal saline and 25 mg of Benadryl. Patient was also given initially 1 g of p.o. acetaminophen and 325 mg of aspirin. On reassessment the patient is symptom free. Her vitals are normal. She is stable and safe for discharge home. Lab workup was otherwise normal. Patient will be discharged home with instructions to follow up with her primary care physician in the next 1-2 weeks. Return immediately to the emergency department with any recurring symptoms. Departure Disposition: 01 HOME / SELF CARE / HOMELESS Impression: Primary Impression: Headache Condition: Improved Discharge Instructions: Headache Additional Instructions: Please monitor your symptoms for recurrence. If you have a mild headache he may take ibuprofen or Tylenol as needed. Should the headache become more severe or if you develop other neurological symptoms such as numbness, weakness, tingling, facial droop, slurred speech, confusion you need to come back immediately to the emergency department. At this point in time your workup is negative. Please follow up with your primary care physician in the next 1-2 weeks. Referrals: NO PRIMARY CARE PROVIDER (PCP) Signature Scribe Signature: 1 Attestation: 1 PELON GRANT MD Apr 06, 2025 07:39
[2025-04-06] MEDS: normal saline 1000ml 1,000 ML IV ONE (08:05)
[2025-04-06] MEDS: acetaminophen 325mg tablet PO ONE (08:06)
[2025-04-06] MEDS: aspirin 325mg tablet, delayed-release (Ecotrin) PO ONE (08:06)
--- NOTE | 2025-04-06 08:23 | RADIOLOGY REPORT ---
EXAM: DI CHEST,SINGLE VIEW Indication: headache Technique: Single frontal view of the chest was obtained Comparison: DI CHEST,SINGLE VIEW on DOS: 12/25/24 FINDINGS: Lines and Tubes: None Lungs: No focal consolidation. Pleura: No effusion. No pneumothorax. Cardiomediastinal contours: Unremarkable Bones: No acute osseous abnormality. IMPRESSION: No acute cardiopulmonary disease.
[2025-04-06] MEDS ORDERED: iohexol 350MG/ML 100ml bottle IV ONE (08:42)
[2025-04-06 09:15] LABS: BILIRUBIN,URINE NEGATIVE (Neg); CLARITY,URINE SLIGHTLY CLOUDY (Clear); COLOR,URINE YELLOW (Yellow); GLUCOSE, URINE NEGATIVE (Neg); KETONES,URINE NEGATIVE (Neg); LEUKOCYTE ESTERASE ,URINE TRACE (Neg); NITRITES, URINE NEGATIVE (Neg); OCCULT BLOOD,URINE NEGATIVE (Neg); PROTEIN,URINE NEGATIVE (Neg); UROBILINOGEN,URINE 0.2 E.U/dL (0.2-1.0)
[2025-04-06 09:24] LABS: UA COLLECTION TYPE CLN CATCH MIDSTREAM
[2025-04-06 09:34] LABS: BACTERIA,URINE FEW /HPF (Neg); RENAL CELLS, URINE FEW /HPF; TRANSITIONAL EPI CELLS,URINE MODERATE /HPF
[2025-04-06 09:40] LABS: WBC CLUMPS,URINE FEW /HPF (NEGATIVE)
[2025-04-06] MEDS: diphenhydrAMINE 50 mg/ml inj IV ONE (09:44)
[2025-04-06 09:48] LABS: SQUAMOUS EPITHELIAL CELL,UR MODERATE /LPF (FEW)
--- NOTE | 2025-04-06 09:57 | RADIOLOGY REPORT ---
Procedure: CT CTA NECK/HEAD HISTORY: Headache/dizziness- r/o CVA or aneurysm Comparison Study: None Exam Date:04/06/2025 09:03 AM TECHNIQUE: CTA head without and with intravenous contrast. CTA neck with intravenous contrast. [employer]D [employer] postprocessing was performed and images were used for interpretation and reporting. Radiation Dose : CT Dose: CTDI volume is 15 mGy. Dose-length product is 599 mGy*cm FINDINGS: CTA head: There is normal enhancement of the visualized distal internal carotid, anterior and middle cerebral a rteries. There is a normal anterior communicating artery complex. There are bilateral posterior commu nicating arteries. The vertebral, basilar, cerebellar and posterior cerebral arteries are within norm al limits. The early parenchymal enhancement is grossly unremarkable. The visualized intracranial [place] structures are grossly unremarkable. CTA neck: The visualized thoracic aortic arch and proximal great vessels are unremarkable. The left common, int ernal and external carotid arteries are within normal limits. The right common, internal and external carotid arteries are within normal limits. The cervical segments of the right and left vertebral art eries are within normal limits. The limited visualized lung apices are clear. The surrounding soft ti ssues and osseous structures are otherwise unremarkable. IMPRESSION: 1. No evidence of hemodynamically significant intracranial stenosis, proximal occlusion or aneurysm. 2. No evidence of hemodynamically significant cervical stenosis or dissection. All CT scans at this medical facility are performed using dose modulation techniques as appropriate t o a performed exam including the following: Automated exposure control was utilized; adjustment of th e MA and/or KV according to patient size; and use of iterative reconstruction technique.
[2025-04-06 11:19] VITALS: BP 131/75; PULSE 53; RESP 15; O2SAT 96
== END 2025-04-06 11:16 | disposition home or self-care (01) ==
LOC: ER 05:40
DX: R51.9 Headache, unspecified (principal); J45.909 Unspecified asthma, uncomplicated; E78.00 Pure hypercholesterolemia, unspecified; I10 Essential (primary) hypertension; Z88.5 Allergy status to narcotic agent; Z88.8 Allergy status to other drugs, medicaments and biological substances; Z90.49 Acquired absence of other specified parts of digestive tract; Z90.710 Acquired absence of both cervix and uterus; Z79.899 Other long term (current) drug therapy; Z79.82 Long term (current) use of aspirin
CPT/HCPCS: 36415; 70450; 70496; 70498; 71045; 80048; 81001; 83735; 84484; 85025; 85651; 86140; 87088; 93005; 96361; 96374; 99285; J1200; J7030; Q9967